=== PATIENT | female | born 1965 | race Caucasian/White ===

== ENCOUNTER 2016-07-11 13:02 | Emergency (ER) | payer OTHER ==
[~2016-07-11] VITALS: Ht 157.5 cm; Wt 58.7 kg
[2016-07-11 13:04] VITALS: BP 149/91
[2016-07-11] MEDS ORDERED: METHOCARBAMOL 750 MG TABLET ONE (13:28)
[2016-07-11] MEDS ORDERED: KETOROLAC 30 MG/1 ML ONE (13:28)
[2016-07-11] MEDS ORDERED: METHOCARBAMOL 750 MG TABLET PO ONE (13:30)
[2016-07-11] MEDS ORDERED: KETOROLAC 30 MG/1 ML IM ONE (13:30)
[2016-07-11] MEDS ORDERED: PLEASE ENTER ALLERGIES MC SCH ×2 (13:30)
== END 2016-07-11 15:08 | disposition home or self-care (01) ==
LOC: ED 13:49
DX: S16.1XXA Strain of muscle, fascia and tendon at neck level, initial encounter (principal); X58.XXXA Exposure to other specified factors, initial encounter; Y93.89 Activity, other specified; Y99.8 Other external cause status; Y92.89 Other specified places as the place of occurrence of the external cause
CPT/HCPCS: 72050; 96372; 99284; J1885; J7512